=== PATIENT | male | born 1990 | race Two or more races ===

== ENCOUNTER 2017-01-07 20:29 | Emergency (ER) | payer MEDICAID ==
[2017-01-07 20:36] VITALS: TEMP 98.7
[2017-01-07 21:13] LABS: BASO # 0.1 K/uL (0.0-0.2); BASO % 0.8 % (0.0-2.0); EOS # 0.4 K/uL (0.0-0.7); EOS % 4.3 % (0.0-4.0); HEMATOCRIT 38.8 % (35.0-51.0); LYMPH # 3.7 K/uL (1.0-4.3); LYMPH % 40.4 % (20.0-40.0); MEAN CELL VOLUME 91.3 fl (80.0-94.0); MEAN CORPUSCULAR HEMOGLOBIN 30.6 pg (27.0-31.0); MEAN CORPUSCULAR HGB CONC 33.6 g/dL (33.0-37.0); MEAN PLATELET VOLUME 8.2 fl (7.2-11.7); NEUT % 43.5 % (50.0-75.0); RED CELL DISTRIBUTION WIDTH 13.1 % (11.5-14.5); WHITE BLOOD COUNT 9.1 K/uL (4.8-10.8)
[2017-01-07 21:20] LABS: ALB/GLOB RATIO 1.7 (1.0-2.1); ALCOHOL SERUM < 10 mg/dl (0-10); ALKALINE PHOSPHATASE 44 U/L (38-126); ALT/SGPT 34 U/L (21-72); AST/SGOT 31 U/L (17-59); BILIRUBIN,TOTAL 0.5 mg/dl (0.2-1.3); BLOOD UREA NITROGEN 19 mg/dl (9-20); CALCIUM 9.7 mg/dL (8.4-10.2); CARBON DIOXIDE 27 mmol/L (22-30); CHLORIDE 102 mmol/L (98-107); GFR AFRICAN-AMERICAN > 60; GLUCOSE,RANDOM 88 mg/dL (75-110); POTASSIUM 4.4 MMOL/L (3.6-5.0); SODIUM 138 mmol/l (132-148); TOTAL PROTEIN 7.3 G/DL (6.3-8.2)
--- NOTE | 2017-01-07 21:40 | ED PDOC ---
HPI: Psych/Substance Abuse Time Seen by Provider: 01/07/17 21:32 Chief Complaint (Nursing): Substance Abuse Chief Complaint (Provider): medical clearance Additional Complaint(s): 26yo M in ED -pt needs medical clearance for incarceration medically and psychiatrically police state pt is being arrested for possessions PT was bought to ED of many bags of heroin and pt admitted to police that he used 2 bags of heroin inj. pt bought to ED because he started become more sleepy and groggy with slurred speech. Past Medical History Reviewed: Historical Data, Nursing Documentation, Vital Signs Vital Signs: Last Vital Signs Temp 98.7 F 01/07/17 20:34 Pulse 89 01/07/17 21:00 Resp 19 01/07/17 21:00 BP 124/79 01/07/17 21:00 Pulse Ox 95 01/07/17 21:00 - Medical History PMH: Anxiety, Back Problems - Family History Family History: States: No Known Family Hx - Allergies Allergies/Adverse Reactions: Allergies Allergy/AdvReac Type Severity Reaction Status Date / Time No Known Allergies Allergy Verified 01/07/17 20:36 Review of Systems ROS Statement: Except As Marked, All Systems Reviewed And Found Negative Review Of Systems: ROS cannot be obtained secondary to pt's inabilty to answer questions. Physical Exam - Reviewed Nursing Documentation Reviewed: Yes Vital Signs Reviewed: Yes - Physical Exam Appears: Positive for: No Acute Distress. Negative for: Well, Non-toxic ( slurredh speech, somnolent) Head Exam: Positive for: ATRAUMATIC, NORMAL INSPECTION, NORMOCEPHALIC Skin: Positive for: Warm. Negative for: Normal Color Eye Exam: Negative for: Normal appearance, EOMI, PERRL (pinpoint pupils) Cardiovascular/Chest: Positive for: Regular Rate, Rhythm Respiratory: Positive for: CNT, Normal Breath Sounds Neurologic/Psych: Positive for: Alert. Negative for: Oriented - Laboratory Results Result Diagrams: 01/07/17 21:05 01/07/17 21:05 - ECG O2 Sat by Pulse Oximetry: 95 - Progress ED Course And Treament: Pt will be palced on monitor, get EKG, cbc/cmp/ BAL. pt under police custody. Medical Decision Making Medical Decision Making: PT is stable with stable VS and more alert. pt can be d/c . pt is no longer under arrest according to police no longer in need for pysch clearance. ED OBSERVATION Discharge: Yes Date of observation admission: 01/07/17 Time of observation admission: 21:44 - Observation admission statement Patient is being placed in observation because:: intoxication - Goals of Observation Goals of observation are:: sobreity.eval of crisis and medical clearance. - Progress Note Progress Note: 01/08/17 01:12 stable for d/c Disposition - Clinical Impression Clinical Impression: Drug abuse - Patient ED Disposition Is Patient to be Admitted: No - Disposition Disposition: Routine/Home Disposition Time: 01:12 Condition: STABLE Instructions: Benzodiazepine Abuse (ED) Forms: [employer] (Khmer)
[2017-01-08 00:26] LABS: RBC URINE 1 /hpf (0-3); URINE BACTERIA RARE (<OCC); URINE BILIRUBIN NEGATIVE (NEGATIVE); URINE BLOOD NEGATIVE (NEGATIVE); URINE COLOR YELLOW (YELLOW); URINE GLUCOSE (UA) NEG (Normal); URINE KETONE NEGATIVE (NEGATIVE); URINE LEUKOCYTE ESTERASE NEG Leu/uL (Negative); URINE PROTEIN NEGATIVE (NEGATIVE); URINE UROBILINOGEN 0.2-1.0 mg/dL (0.2-1.0); WBC URINE < 1 /hpf (0-5)
[2017-01-08 02:34] VITALS: BP 124/79; PULSE 81; RESP 18; O2SAT 97
== END 2017-01-08 02:10 ==
LOC: H.ER 20:29
DX: F19.10 Other psychoactive substance abuse, uncomplicated (principal); F41.9 Anxiety disorder, unspecified